=== PATIENT | female | born 1995 | race Caucasian/White ===

== ENCOUNTER → 2020-07-22 13:44 | Outpatient (BNVA) | payer OTHER, SELFPAY | PROVIDERS: Family Provider Nurse Practitioner Family; PCP Nurse Practitioner Family; Visit Provider Obstetrics & Gynecology | DX: Z32.01 Encounter for pregnancy test, result positive (principal) | CPT/HCPCS: 81025 ==

== ENCOUNTER → 2020-08-03 13:20 | Outpatient (BNVA) | payer OTHER, SELFPAY | PROVIDERS: Family Provider Nurse Practitioner Family; PCP Nurse Practitioner Family; Visit Provider Obstetrics & Gynecology | DX: O20.0 Threatened abortion (principal) | CPT/HCPCS: 84702; 86850; 86900 ==

== ENCOUNTER → 2020-08-31 13:51 | Outpatient (BNVA) | payer OTHER, SELFPAY | PROVIDERS: Family Provider Nurse Practitioner Family; PCP Nurse Practitioner Family; Visit Provider Obstetrics & Gynecology | DX: Z34.90 Encounter for supervision of normal pregnancy, unspecified, unspecified trimester (principal) | CPT/HCPCS: 80053; 80307; 84315; 85027; 86592; 86762; 86803; 86850; 86900; 87340 ==

== ENCOUNTER → 2020-09-19 10:32 | Outpatient (BNVA) | payer OTHER, SELFPAY | PROVIDERS: Family Provider Nurse Practitioner Family; PCP Nurse Practitioner Family; Visit Provider Obstetrics & Gynecology | DX: Z12.4 Encounter for screening for malignant neoplasm of cervix (principal) | CPT/HCPCS: 84315; 88175 ==

== ENCOUNTER → 2020-10-11 13:51 | Outpatient (BNVA) | payer OTHER, MEDICAID, SELFPAY | PROVIDERS: Family Provider Nurse Practitioner Family; PCP Nurse Practitioner Family; Visit Provider Obstetrics & Gynecology | DX: Z34.90 Encounter for supervision of normal pregnancy, unspecified, unspecified trimester (principal) | CPT/HCPCS: 81000 ==

== ENCOUNTER → 2021-01-03 12:32 | Outpatient (BNVA) | payer OTHER, MEDICAID, SELFPAY | PROVIDERS: Family Provider Nurse Practitioner Family; PCP Nurse Practitioner Family; Visit Provider Obstetrics & Gynecology | DX: Z34.80 Encounter for supervision of other normal pregnancy, unspecified trimester (principal); Z34.90 Encounter for supervision of normal pregnancy, unspecified, unspecified trimester; Z04.89 Encounter for examination and observation for other specified reasons; F41.9 Anxiety disorder, unspecified; R87.611 Atypical squamous cells cannot exclude high grade squamous intraepithelial lesion on cytologic smear of cervix (ASC-H) | CPT/HCPCS: 82950; 84315; 85027 ==

== ENCOUNTER → 2021-03-01 12:31 | Outpatient (BNVA) | payer OTHER, MEDICAID, SELFPAY | PROVIDERS: Family Provider Nurse Practitioner Family; PCP Nurse Practitioner Family; Visit Provider Obstetrics & Gynecology | DX: Z34.90 Encounter for supervision of normal pregnancy, unspecified, unspecified trimester (principal); Z34.83 Encounter for supervision of other normal pregnancy, third trimester | CPT/HCPCS: 84315; 87081 ==

== ENCOUNTER → 2021-03-14 11:36 | Outpatient (BNVA) | payer OTHER, MEDICAID, SELFPAY | PROVIDERS: Family Provider Nurse Practitioner Family; PCP Nurse Practitioner Family; Visit Provider Obstetrics & Gynecology | DX: Z34.80 Encounter for supervision of other normal pregnancy, unspecified trimester (principal); R87.611 Atypical squamous cells cannot exclude high grade squamous intraepithelial lesion on cytologic smear of cervix (ASC-H) | CPT/HCPCS: 81000 ==

== ENCOUNTER 2021-03-20 03:47 | Inpatient (IN) | payer OTHER, MEDICAID, SELFPAY ==
[2021-03-20] VITALS (69 sets, daily range): BP systolic 80–142; BP diastolic 44–79; PULSE 80–125; RESP 16–20; TEMP 35.9–37.6; BMI 27.6
[2021-03-20] MEDS: lactated ringers 1,000 ML 999 ML IV ×2 (03:50→08:51)
[2021-03-20 03:51] LABS: Basophils % 0.3 %; Eosinophils % 0.3 %; Hematocrit 38.4 % (37.0-47.0); Hemoglobin 12.3 g/dL (11.5-15.3); Lymphocytes # 2.1 10^3/uL (0.8-4.8); Lymphocytes % 17.5 %; Mean Corpuscular Hemoglobin 26.6 pg (28.0-34.0); Mean Corpuscular Volume 82.9 fL (81-99); Mean Platelet Volume 13.2 fL (7.4-10.4); Monocytes # 0.7 10^3/uL (0.2-0.9); Monocytes % 6.3 %; Neutrophils # 8.81 10^3/uL (1.8-7.7); Neutrophils % 75.2 %; Nucleated Red Blood Cells % 0 %; Platelet Count 196 10^3/cmm (130-400); Red Blood Count 4.63 10^6/uL (4.1-5.3); Red Cell Distribution Width 14.6 % (12.1-15.1); White Blood Count 11.7 10^3/uL (4.0-10.0)
[2021-03-20] MEDS: fentaNYL 50 mcg/mL INJ 2mL IVP (03:55)
--- NOTE | 2021-03-20 04:41 | P.ANESASSM_ITS ---
Pre-Anesthetic Assessment Pre-Anesthetic Assessment: Height/Weight: Height 1.57 m Weight 68.492 kg Temp Pulse BP 97.3 F L 97 83/49 03/20/21 03:13 03/20/21 04:37 03/20/21 04:37 Preop Diagnosis: Labor Pain Proposed Procedure: CRISTINO Was Beta Merced taken within 24 hours: N/A Was Clonidine taken within 24 hours: N/A Social: Social History: No alcohol and No tobacco Exam: Pre-Anes Outpt Exam: alert, oriented x 3, clear to auscultation b ilaterally and regular rate & rhythm History/ROS: No significant history except as noted and No significant complaints Pulmonary: Pulmonary: None reported CV/HEM: CV/HEM: None reported : : None reported Hepatic: Hepatic: None reported GI: GI: None reported Metabolic: Metabolic: None reported Musc/skel: Musc/skel: None reported Neuropsych: Neuropsych: None reported Anesthetic Plan: ASA status: 2 Anesthesia: Regional (specify below) Other: CRISTINO Risk of > 500 ml blood loss (7ml/kg in children): No PFSH Anesthesia PFSH: Medical History Anxiety Diagnosed in her late teenage years. Has been on Lexapro in the past. Is not currently on any medication and does not see a therapist. No pertinent past medical history Denies diabetes, asthma, hypertension, seizures, DVT/PE. PMD: none Surgical History No pertinent past surgical history Family History Denies family history of Colon cancer Ovarian cancer Diabetes Clotting disorder Heart disease Hypercholesteremia Breast cancer Bleeding disorder Hypertension Uterine cancer Thyroid disease Stroke Data Anesthesia CBC & Chem 7: 03/20/21 03:43 Other Labs: Laboratory Results - last 48 hr 03/20/21 03:43 WBC 11.7 H RBC 4.63 Hgb 12.3 Hct 38.4 MCV 82.9 MCH 26.6 L MCHC 32.0 RDW 14.6 Plt Count 196 MPV 13.2 H Neut % (Auto) 75.2 Lymph % (Auto) 17.5 [place] % (Auto) 6.3 Eos % (Auto) 0.3 Baso % (Auto) 0.3 Neut # (Auto) 8.81 H Lymph # (Auto) 2.1 [place] # (Auto) 0.7 Eos # (Auto) 0.0 Baso # (Auto) 0.0 Nucleated RBC % (auto) 0 Nucleated RBCs # 0.0 Cardiac Studies: No Data to Display
--- NOTE | 2021-03-20 04:42 | ANES.PROC ---
Anesthesia Procedures Procedure/Date: 03/20/21 Epidural: Time Out Performed: Yes Consents Signed: Procedure Consent Consent: requested by attending/covering physician, from patient, risks and benefits reviewed and patient agrees to proceed Lumbar Level: L2-L3 Epidural position: sitting Epidural procedure: sterile prep of area, 1% lidocaine to numb the area, 18 g needle, neg for paresthesia, test dose given (3cc), 1.5% xylocaine 1:200k epi, 0.2% Ropivacaine bolus ml (5cc and Fentanyl 100mcg), no systemic response, sterile dressing applied, L.U.D. no apparent complications and 0.2% Ropiavacaine @ mls/hr (11cc/hour) Additional Comments: First attempt at L3-L4 suspicious for wet tap. Attempt aborted and cath inserted at L2-L3 as described above
[2021-03-20] MEDS: dextrose 5%-lactated ringers 1,000 ML 125 ML IV (05:21)
--- NOTE | 2021-03-20 08:31 | PM.PN ---
Subjective Subjective: Interval history: Mrs. Lazo 25-year-old female with an estimated gestational age at 38 weeks +6 days in active labor Feeling comfortable feeling the contractions with the epidural Vitals/I&O/Wt Last Vital Signs Temp 98.8 F 03/20/21 07:04 Pulse 100 03/20/21 08:14 Resp 18 03/20/21 05:00 BP 113/58 03/20/21 08:14 03/19/21 03/20/21 03/20/21 22:59 06:59 14:59 Intake Total 1000 / 1000 Balance 1000 / 1000 Weight last 48 hrs Weight 68.492 kg Physical Exam Narrative: EXAM NARRATIVE: GA: Alert and oriented ?3. Lungs: Clear to auscultation bilaterally. Heart: Regular rhythm and rate. Abdomen: Gravid, full the height equals dates, nontender. 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 Extremities: no edema, no cyanosis, no calves pain. heart tracing: Basal rate: 1140 bpm, Variability: Mod, Accelerations: Present, Decelerations: variable, Contraction: q3min. Urinary Catheter Management^: Walker: Cath Placed During This Visit: yes Reason for Continuing Indwelling Catheter: Required Immobilization for Trauma or Surgery or Anesthesia Urinary Catheter Date of Insertion: 03/20/21 Urinary Catheter Time of Insertion: 05:25 Data : 03/20/21 21:45 A&P Assessment and plan (1) Term : Mrs. Lazo 25-year-old female with an estimated gestational age at 38 weeks. Came to labor and delivery in active labor. Having some variable decelerations. heart tracing category 2. Patient was repositioned, intrauterine resuscitation measures taken. She is almost fully dilated with a residual anterior lip. Variability moderate. Good scalp stimulation. Anticipate vaginal delivery Status: Acute Attestations Medical Necessity Statement*: Active labor Coding Level of Care Code Acute Support Director for Chg Fwd Diagnoses Term Z34.90
--- NOTE | 2021-03-20 09:24 | P.PCNOB_ITS ---
Delivery Note: Date of delivery: March 20, 2021 Pre-delivery diagnoses: Term Post-delivery diagnoses: Term delivered Procedure: Spontaneous vaginal delivery Op report anesthesia: General Delivering Physician: Christopher Funes MD Estimated blood loss (mL): 300 Pre-Delivery Course: Ms. Zapata is a 25 year old with LMP of 06/11/2020, CIRO 03/28/2021 based on LMP consistent with 7-week sonogram, placing her at 38 6/7 weeks today who has been receiving care from [facility]. She has been experiencing painful uterine contractions for the past 4 hours. The contractions are occurring at 4 minute intervals with approximately 30 second duration. She continues to feel movement between the contractions. She denies rupture of membranes, but referred spotting. CC: Onset of labor at term. HPI: Received appropriate care. Daily vitamins since two months prior to conception. labs have all been normal, including negative for HIV. She was found to negative for Group B Strep from screening at 36 weeks. She has gained approximately 34 lbs throughout the . She denies a history of HTN during . Glucose tolerance screening for gestational diabetes was negative. Delivery: The patient was noted to be complete and pushing, so was placed in the dorsal lithotomy position, prepped and draped in the usual sterile fashion for a vaginal delivery. Pt. Noted to have epidural anesthesia. At 0918 the patient delivered a male at term weighing 3060 g with scores of 9 and 9 at one and five minutes, respectively. The vertex was delivered spontaneously over an intact perineum. The patient was asked to push and the head delivered spontaneously in the KIM position, over an intact perineum. A nuchal cord was checked and 2 loops noted, and delivered through around head as necessary. The anterior shoulder delivered easily and the posterior shoulder followed. The remainder of the was easily delivered and the oropharynx and nasopharynx was bulb suctioned. The infant was noted to have spontaneous cry and spontaneous movement of all four extremities. The cord was clamped x 2 and cut and noted to have 2 arteries and one vein. The infant was passed to the mother's abdomen where nursing personnel were in attendance. Cord blood sample was then obtained. The placenta delivered intact spontaneously and the uterus was explored. 20 units of Pitocin was placed in the IV bag to firm the uterus. Examination of the cervix and vaginal vault did not reveal any lacerations. A vaginal pack was then placed. Examination of the perineum showed no lacerations. The vaginal pack was then removed. The patient tolerated this procedure well, and recovered in L&D with her in their LDR room. All sponge and needle counts were correct. Post-Delivery Status: Good and stable Coding Level of Care Code Acute Chief Strategy Officer for Kostas Sheets
[2021-03-20] MEDS: oxytocin 30 UNIT/500 ML BAG 600 UNIT IV (09:32)
[2021-03-20] MEDS: lidocaine 2% INJ 20 mL INJECTION (09:32)
--- NOTE | 2021-03-20 10:44 | PC.NURSE ---
1035- Called in to patient room stating that she felt a gush of something . This nurse note a small amount of blood on the santo pad. Fundal massage was performed and there was no deviation from the bladder. Santo pad changed and ice pack repositioned. Patient stated that she was feeling dizzy. Patient was drinking orange juice and she was offered food. She asked if her was able to pick her up food at [employer]. She was instructed not to get out of bed without assistance from the nursing staff. Patient verbalized understanding. No further needs noted at this time.
--- NOTE | 2021-03-20 11:00 | PC.NURSE ---
Hat Brusher Machine in to do 1100 fundal massage. Noted that there is liquid running down the side of the bed and in to a large puddle on the floor. Patient states something feels wet but does not feel like she has urinated. Patient assisted to the bathroom and voids in toilet. Complete linen change performed and floor cleaned. Patient sitting up in bed eating afterwards.
[2021-03-20] MEDS: benzocaine-menthol 78 gm Canister 1 SPRAY TOPICAL (15:07)
[2021-03-20] MEDS: ibuprofen 800 mg tablet PO ×2 (15:07→21:06)
[2021-03-20] MEDS: docusate sodium 100 mg Capsule PO (17:50)
[2021-03-20 21:55] LABS: Hematocrit 33.2 % (37.0-47.0); Hemoglobin 10.6 g/dL (11.5-15.3); Mean Corpuscular HGB Conc 31.9 g/dL (30.0-36.0); Mean Corpuscular Hemoglobin 26.6 pg (28.0-34.0); Mean Corpuscular Volume 83.4 fL (81-99); Mean Platelet Volume 12.4 fL (7.4-10.4); Platelet Count 158 10^3/cmm (130-400); Red Blood Count 3.98 10^6/uL (4.1-5.3); Red Cell Distribution Width 14.3 % (12.1-15.1); White Blood Count 12.7 10^3/uL (4.0-10.0)
[2021-03-21 03:58] VITALS: TEMP 35.9
[2021-03-21 03:59] VITALS: BP 76/43; PULSE 85
[2021-03-21] MEDS: acetaminophen 325 mg Tablet 650 MG PO (07:09)
[2021-03-21] MEDS: ibuprofen 800 mg tablet PO (09:41)
[2021-03-21] MEDS: docusate sodium 100 mg Capsule PO (09:41)
[2021-03-21] MEDS: prenatal vitamin Capsule 1 CAP PO (09:41)
[2021-03-21 09:43] VITALS: BP 98/55; PULSE 92
[2021-03-21 09:44] VITALS: TEMP 36.4
--- NOTE | 2021-03-21 12:03 | PM.OBGYDC ---
Discharge Providers SERVOMECHANISM ASSEMBLER Date of Admission: 03/20/21 03:47 Date of Discharge: 03/21/21 Attending Provider at Admission: Christopher Funes MD Attending Provider at Discharge: Christopher Funes MD Primary Care Provider: Mauricio Cardona Diagnoses at Discharge Discharge Diagnosis (1) Term delivered: Status: Acute Reason for Visit Reason for Visit: CONTRACTIONS Hospital Course Hospital Course Ms. Zapata is a 25 year old with LMP of 06/11/2020, CIRO 03/28/2021 based on LMP consistent with 7-week sonogram, placing her at 38 6/7 weeks today who has been receiving care [place] [facility]. She has been experiencing painful uterine contractions for the past 4 hours. The contractions are occurring at 4 minute intervals with approximately 30 second duration. She continues to feel movement between the contractions. She denies rupture of membranes, but referred spotting. Admitted to labor and delivery with cervix at 5 cm dilation, 75% effacement at 0 station in active labor. She progressed to have a spontaneous vaginal delivery of male infant with a weight at 3060 g Apgars 9/9. observation has been uneventful. Tolerating diet well. Ambulating without difficulty. Information Peripartum Data: Delivery Method: Vaginal Physical Exam Narrative: EXAM NARRATIVE: GA; alert and oriented x 3 HEENT: normal Breasts: engorged Nipples - skin intact Lungs; clear to auscultation Heart: regular rhythm, no murmurs. Abd: Appropriately tender. BS+. Uterine fundus below umbilicus. No Fundal Tenderness. Perineum: normal lochia. Extremities: no edema, no cyanosis, no tenderness. Urinary Catheter Management^: Walker: Cath Placed During This Visit: yes, but has since been removed by the nurse Reason for Continuing Indwelling Catheter: Required Immobilization for Trauma or Surgery or Anesthesia Urinary Catheter Date of Insertion: 03/20/21 Urinary Catheter Time of Insertion: : Date Urinary Catheter Removed: 03/20/21 Time Urinary Catheter Discontinued: 08:21 Discharge Data Data Completed and Pending: Labs from last 24 hours 03/20/21 21:45 WBC 12.7 H RBC 3.98 L Hgb 10.6 L Hct 33.2 L MCV 83.4 MCH 26.6 L MCHC 31.9 RDW 14.3 Plt Count 158 MPV 12.4 H Vitals: Last Vital Signs Temp 97.5 F L 03/21/21 09:44 Pulse 92 03/21/21 09:43 Resp 16 03/20/21 16:20 BP 98/55 03/21/21 09:43 Discharge Plan Discharge Patient Disposition: Home Condition: Stable Prescriptions: New ibuprofen 800 mg tablet 800 mg PO TID PRN (Reason: pain) Qty: 60 RF: 0 acetaminophen 325 mg capsule 325 mg PO Q4H PRN (Reason: fever or pain) Qty: 60 RF: 0 Continued prenat.vits,reese,lcd-kzms-tapnh Tablet 1 tab PO DAILY RF: 0 docusate sodium [Colace] 100 mg capsule 100 mg PO DAILY PRN (Reason: Heartburn) RF: 0 famotidine [Pepcid] 20 mg tablet 20 mg PO DAILY RF: 0 calcium carbonate 500 mg calcium (1,250 mg) tablet,chewable 500 mg PO DAILY PRN (Reason: Heartburn) RF: 0 Discharge Orders: Discharge Order (Routine); Ordered 03/21/21 Ordered By: Christopher Funes Referrals: Christopher Funes MD [Physician] - 05/09/21 10:00 am (Your 6 week check has been scheduled for 05/09/2021 at 10:00 am.) Discharge Diet: Usual diet Discharge Activity: Increase activity as tolerated Patient Instructions: Vitamins (By mouth), Pre-eclampsia and Eclampsia (DC), Bleeding (DC), OB Discharge Report, OB Food/Drug Interaction Guide, Opioid Safety, OB Proud Parent Packet, OB Vaginal Deliveries - [facility] Activity Restrictions/Additional Instructions: 1. Please call [facility] on next working day to make your post appointment in 6 weeks. 2. Please stay home until you come back to the clinic on first post-operative check up. 3. Please follow instructions on your medications CAREFULLY. 4. If you have abdominal incision, do not cover it unless dressing is necessary because of drainage. OK to shower, but avoid bath. Leave steri-strips until they fall off. If they are still on one week after surgery, you may remove them. 5. If you had vaginal surgery or vaginal repair, Dr. Funes may instruct you to take SITZ bath. 6. Yellow, blood tinged odorous vaginal discharge is usually normal after hysterectomy or vaginal surgeries. 7. No sexual intercourse, tampons, or douches until you are completely released from the post-operative care. 8. Avoid constipation by eating right and maybe using some Metamucil or Milk of Magnesia. 9. All prescription refills are given during the working hours. Please do no wait till it runs out. Call the clinic at [phone] before your medication runs out. The clinic will get in touch with your doctor to prescribe medications if necessary. 10. Please remain within 40 mile radius from our hospital because emergencies do happen now and then during the post-operative period. 11. If you have stairs at home, take one step at a time slowly and minimize the number of trips. It helps to stay in one floor for the next few days. No lifting except what you can lift by one hand until you are released from the post-operative care. 12. Driving is discouraged until you are well healed. It may be 3-4 weeks before you feel strong enough to drive. You should be able to turn and look through the rear window without pain and you should be able to push the brake pedal very hard without pain before you drive. No fast rules, but SAFETY should be your primary concern. DO NOT drive if you are on sedating medications such as narcotics. 13. Call the clinic (during working hours) to make urgent appointment or go to the Emergency room, if any of the following occurs: i. Vaginal bleeding becomes heavy, more than a period. ii. Incision becomes red and sore, or drains pus. iii. Your temperature is over 100.4 or you have chill. iv. IV site becomes red and swollen (a little ``knot?? is usually OK) v. Persistent nausea and vomiting vi. Persistent constipation or diarrhea vii. Rash or allergic reaction to medications. Discharge Attestations SERVOMECHANISM ASSEMBLER Time Spent in Discharge Care*: greater than 30 min Coding Level of Care Code Acute Java [id number] Technical Lead for Chg Fwd Diagnoses Term delivered O80
[2021-03-21 12:19] VITALS: BP 105/61; PULSE 90; TEMP 36.2
[2021-03-21 12:59] VITALS: BP 105/61; PULSE 90; RESP 16; TEMP 36.2; O2SAT 99
== END 2021-03-21 12:55 | disposition home or self-care (01) | DRG 807 ==
LOC: OPOB 03:47 → OBGYN 03:47
PROVIDERS: Admitting Provider Obstetrics & Gynecology; PCP Nurse Practitioner Family; Visit Provider Obstetrics & Gynecology
DX: O76 Abnormality in fetal heart rate and rhythm complicating labor and delivery (principal); Z37.0 Single live birth; O99.344 Other mental disorders complicating childbirth; F41.9 Anxiety disorder, unspecified; O69.2XX0 Labor and delivery complicated by other cord entanglement, with compression, not applicable or unspecified; Z3A.38 38 weeks gestation of pregnancy; O75.89 Other specified complications of labor and delivery; R87.611 Atypical squamous cells cannot exclude high grade squamous intraepithelial lesion on cytologic smear of cervix (ASC-H)
CPT/HCPCS: 36415; 51702; 59025; 59409; 85025; 85027; 96374; 96375; 98960; 99211; J2795; J3010

== ENCOUNTER → 2021-05-16 14:53 | Outpatient (BNVA) | payer OTHER, MEDICAID, SELFPAY | PROVIDERS: PCP Nurse Practitioner Family; Visit Provider Obstetrics & Gynecology | DX: R87.611 Atypical squamous cells cannot exclude high grade squamous intraepithelial lesion on cytologic smear of cervix (ASC-H) (principal) | CPT/HCPCS: 81025; 88175; 88305 ==

== ENCOUNTER → 2022-01-01 14:30 | Outpatient (BNVA) | payer OTHER, MEDICAID, SELFPAY | PROVIDERS: PCP Nurse Practitioner Family; Visit Provider Obstetrics & Gynecology | DX: R87.612 Low grade squamous intraepithelial lesion on cytologic smear of cervix (LGSIL) (principal) | CPT/HCPCS: 88175 ==

== ENCOUNTER → 2022-02-06 15:10 | Outpatient (BNVA) | payer OTHER, MEDICAID, SELFPAY | PROVIDERS: PCP Nurse Practitioner Family; Visit Provider Obstetrics & Gynecology | DX: R87.611 Atypical squamous cells cannot exclude high grade squamous intraepithelial lesion on cytologic smear of cervix (ASC-H) (principal) | CPT/HCPCS: 81025; 88305; 88342 ==

== ENCOUNTER → 2023-01-21 15:30 | Outpatient (BNVA) | payer OTHER, MEDICAID, SELFPAY | PROVIDERS: PCP Nurse Practitioner Family; Visit Provider Nurse Practitioner Women's Health | DX: Z01.419 Encounter for gynecological examination (general) (routine) without abnormal findings (principal) | CPT/HCPCS: 88175 ==

== ENCOUNTER → 2023-02-19 13:02 | Outpatient (BNVA) | payer OTHER, MEDICAID, SELFPAY | PROVIDERS: PCP Nurse Practitioner Family; Visit Provider Obstetrics & Gynecology | DX: Z01.818 Encounter for other preprocedural examination (principal); R87.619 Unspecified abnormal cytological findings in specimens from cervix uteri; Z12.4 Encounter for screening for malignant neoplasm of cervix | CPT/HCPCS: 81025; 87624; 88305 ==

== ENCOUNTER 2023-04-11 10:18 | Day surgery (SDC) | payer OTHER, MEDICAID, SELFPAY ==
[2023-04-10 09:24] VITALS: BMI 22.6
[2023-04-11] VITALS (10 sets, daily range): BP systolic 98–125; BP diastolic 60–87; PULSE 78–98; RESP 12–18; TEMP 36.1–36.7; O2SAT 95–100
[2023-04-11] MEDS: sodium chloride 0.9% 1,000 ML 30 ML IV (10:45)
[2023-04-11 11:14] LABS: OR HCG Qualitative Urine Negative (Negative)
--- NOTE | 2023-04-11 11:55 | W.PM.OPSUD ---
Surgery/Procedure H&P Update DATE OF PROCEDURE: April 11, 2023 DATE H&P PERFORMED: 04/11/23 H&P UPDATE INFORMATION: I have reviewed H&P completed within last 30 days, I have examined patient prior to procedure and No changes to prior documentation PREOP DIAGNOSIS: severe cervical dysplasia PLANNED PROCEDURE: Operation Date: 04/11/23 12:00 Proposed Procedures p LEEP 48068,R87.619(Not Applicable) - Zana Palm MD
--- NOTE | 2023-04-11 11:55 | W.PM.OPSFHP ---
Same Day Surgery H&P Indication for Procedure/HPI DATE OF PROCEDURE: April 11, 2023 CHIEF COMPLAINT/INDICATIONFOR SURGICAL PROCEDURE: severe cervical dysplasia PREOP DIAGNOSIS: severe cervical dysplasia PLANNED PROCEDURE: Operation Date: 04/11/23 12:00 Proposed Procedures p LEEP 51449,R87.619(Not Applicable) - Zana Palm MD 27 y.o. with colposcopically-directed cervical biopsy showing severe cervical dysplasia, now scheduled for electrosurgical loop excision of the cervix. Medications/Allergies* Allergies/Adverse Reactions Allergy/AdvReac Type Severity Reaction Status Date / Time No Known Allergies Allergy Verified 04/11/23 10:38 Pertinent History/Comorbid Conditions* Medical History (Updated 02/24/23 @ 00:42 by Zana Palm MD) Anxiety and depression Diagnosed in her teenage years--more anxiety. Has been on Lexapro in the past. Was started on Zoloft in 2020 with good control of symptoms. Therapy encouraged. -She does not have a psychiatrist No pertinent past medical history Denies diabetes, asthma, hypertension, seizures, DVT/PE. PMD: none Surgical History (Updated 08/17/20 @ 14:15 by Corrine Daily APN, MARIANA) No pertinent past surgical history Family History (Updated 08/17/20 @ 13:41 by Merna Flores) Denies family history of Colon cancer Ovarian cancer Diabetes Clotting disorder Heart disease Hypercholesteremia Breast cancer Bleeding disorder Hypertension Uterine cancer Thyroid disease Stroke Pertinent Exam Findings alert, oriented x 3, clear to auscultation bilaterally and regular rate & rhythm Recommendations Surgery/Procedure today Coding Level of Care Code Acute Code for Chg Fwd Diagnoses Time Spent (min) 15
--- NOTE | 2023-04-11 12:27 | ANES.PREANE2 ---
Pre-Anesthetic Assessment Height/Weight: Height 1.6 m Weight 58.06 kg Temp Pulse Resp BP Pulse Ox O2 Del Method 98.1 F 78 18 124/60 97 Room Air 04/11/23 10:40 04/11/23 10:40 04/11/23 10:40 04/11/23 10:40 04/11/23 10:40 04/11/23 10:41 Preop Diagnosis: severe cervical dysplasia Operation Date: 04/11/23 12:00 Proposed Procedures p LEEP 27171,R87.619(Not Applicable) - Zana Palm MD Familial anesthetic complications: none Was Beta Merced taken within 24 hours: N/A Was Clonidine taken within 24 hours: N/A Last intake: Intake Last Liquid Date 04/10/23 Last Liquid Time 23:30 Last Solid Date 04/10/23 Last Solid Time 23:30 Social No alcohol and No tobacco Exam alert, oriented x 3, clear to auscultation bilaterally and regular rate & rhythm Airway Submandibular: within normal limits Cervical ROM: within normal limits Mallampati: Class II Dentition: full Neuropsych Anxiety and Depression Anesthetic Plan ASA status: 2 Anesthesia: General Medications/Allergies Home Medications Medication Instructions Recorded Confirmed Last Taken Type valacyclovir 1 gram tablet 2,000 mg PO BID 1 day #4 tabs 01/21/23 04/10/23 03/13/23 Rx valacyclovir 500 mg tablet 500 mg PO DAILY 1 month #30 tabs 01/21/23 04/10/23 04/10/23 Rx norethindrone 1 mg-ethinyl 1 tab PO DAILY #84 tabs 02/19/23 04/10/23 04/09/23 Rx estradiol 20 mcg (21)-iron 75 mg (7) tablet (11/16 (28)) sertraline 100 mg tablet (Zoloft) 100 mg PO DAILY #90 tabs 02/27/23 04/11/23 04/10/23 Rx Allergies Allergy/AdvReac Type Severity Reaction Status Date / Time No Known Allergies Allergy Verified 04/11/23 10:38 PENDING SALE TO [facility] Anesthesia Medical History Anxiety and depression Diagnosed in her teenage years--more anxiety. Has been on Lexapro in the past. Was started on Zoloft in 2020 with good control of symptoms. Therapy encouraged. -She does not have a psychiatrist No pertinent past medical history Denies diabetes, asthma, hypertension, seizures, DVT/PE. PMD: none Surgical History No pertinent past surgical history Family History Denies family history of Colon cancer Ovarian cancer Diabetes Clotting disorder Heart disease Hypercholesteremia Breast cancer Bleeding disorder Hypertension Uterine cancer Thyroid disease Stroke Female Reproductive History Date of last menstrual period: 01/26/23 Data Anesthesia Cardiac Studies: No Data to Display
[2023-04-11] MEDS: vasopressin 20 unit/mL INJ INJECTION (12:53)
[2023-04-11] MEDS: silver nitrate applicator 5 EACH TOPICAL (13:09)
[2023-04-11] MEDS: meperidine 50 mg/mL INJ 12.5 MG IVP (13:46)
[2023-04-11] MEDS: ibuprofen 800 mg tablet PO (14:51)
--- NOTE | 2023-04-11 15:43 | ANE.PACU2 ---
Inpatient post-anesthesia follow up: Airway intact: Yes Vital signs: Temperature 97.3 F Pulse Rate 87 Respiratory Rate 16 Blood Pressure 106/72 Pulse Oximetry 99 Oxygen Delivery Me thod Room Air Oxygen Flow Rate 6 Fraction of Inspir ed Oxygen Hydration adequate: Yes Nausea and vomiting: No Pain level: 3 Mental status: Baseline
--- NOTE | 2023-04-11 19:09 | PM.OP ---
Operative Report Date of procedure: April 11, 2023 Pre-op diagnosis: Preop Diagnosis severe cervical dysplasia Post-op diagnosis: same Procedure done: Electrosurgical loop excision of cervix Specimens removed/disposition: cervical excision Surgeon: Zana Palm MD Anesthesia: MAC Estimated blood loss (mL): 5 Complications: none Condition: stable Disposition: PACU Brief History: 27 y.o. with severe cervical dysplasia on colposcopically-directed cervical biopsy Procedure: Informed consent signed The patient was taken to the operating room and placed supine on the table. MAC anesthesia was induced. The patient was placed in dorsolithotomy position. The patient was prepped and draped in the usual sterile fashion. A bivalve speculum was placed in the vagina. The anterior lip of the cervix was grasped with a single toothed tenaculum. The cervix was then infiltrated at the cervicovaginal junction with 20 U of vasopressin to decrease bleeding. Electrosurgical loop excision of the cervix was done to a depth of approximately 5 mm. Bleeding from the posterior cervix was controlled with silver nitrate and then with one stitch of 2-O chromic. Excellent hemostasis was noted. All instruments were then removed. The patient was placed supine, awakened, and taken to the recovery room. Postoperative condition: stable EBL: less than 5 cc Complications: none Sponge and instrument counts were correct x two
== END 2023-04-11 15:10 | disposition home or self-care (01) ==
PROVIDERS: Anesthesiology; PCP Nurse Practitioner Family; Visit Provider Obstetrics & Gynecology
PROC: 0UBC7ZZ Excision of Cervix, Via Natural or Artificial Opening (ICD-10-PCS; CPT 57522; principal; 2023-04-11 12:00)
DX: N87.1 Moderate cervical dysplasia (principal)
CPT/HCPCS: 57461; 81025; 84703; 88307; J1100; J1885; J2175; J2405; J2704; J3010; J3490; J7030

== ENCOUNTER → 2023-06-11 11:00 | Outpatient (BNVA) | payer OTHER, MEDICAID, SELFPAY | PROVIDERS: PCP Nurse Practitioner Family; Visit Provider Obstetrics & Gynecology | DX: Z12.4 Encounter for screening for malignant neoplasm of cervix (principal) | CPT/HCPCS: 87624 ==

== ENCOUNTER → 2023-09-09 14:30 | Outpatient (BNVA) | payer OTHER, MEDICAID, SELFPAY | PROVIDERS: PCP Nurse Practitioner Family; Visit Provider Obstetrics & Gynecology | DX: Z12.4 Encounter for screening for malignant neoplasm of cervix (principal) | CPT/HCPCS: 88175 ==

== ENCOUNTER → 2023-12-30 15:10 | Outpatient (BNVA) | payer MEDICAID, SELFPAY | PROVIDERS: PCP Nurse Practitioner Family; Visit Provider Obstetrics & Gynecology | DX: Z01.419 Encounter for gynecological examination (general) (routine) without abnormal findings (principal) | CPT/HCPCS: 87624 ==

== ENCOUNTER 2024-02-27 10:44 | Day surgery (SDC) | payer OTHER, MEDICAID, SELFPAY ==
[2024-02-27] VITALS (15 sets, daily range): BP systolic 96–141; BP diastolic 66–104; PULSE 77–91; RESP 14–18; TEMP 36.3–36.8; O2SAT 91–98; BMI 24.5
--- NOTE | 2024-02-27 01:37 | P.HP_ITS ---
Same Day Surgery H&P Indication for Procedure/HPI DATE OF PROCEDURE: February 27, 2024 CHIEF COMPLAINT/INDICATIONFOR SURGICAL PROCEDURE: high-grade cervical dysplasia PREOP DIAGNOSIS: high-grade cervical dysplasia PLANNED PROCEDURE: Operation Date: 02/27/24 12:20 Proposed Procedures p Cervical Conization 87342, N87.1(Not Applicable) - Zana Palm MD 28 y.o. h/o LEEP cervical excision April 11, 2023 for colposcopically cervical bx c/w GAETANO III pathology of LEEP cervical excision - GAETANO II with endocervical glandular invo lvement cauterized ectocervical margin focally positive now with persistent HGSIL Paps scheduled for conization of cervix Medications/Allergies* Home Medications Medication Instructions Recorded Confirmed Type sertraline 100 mg tablet 100 mg PO DAILY 02/26/24 02/26/24 History Allergies/Adverse Reactions Allergy/AdvReac Type Severity Reaction Status Date / Time No Known Allergies Allergy Verified 12/30/23 14:13 Pertinent History/Comorbid Conditions* Medical History (Updated 09/17/23 @ 21:08 by Zana Palm MD) Anxiety and depression Diagnosed in her teenage years--more anxiety. Has been on Lexapro in the past. Was started on Zoloft in 2020 with good control of symptoms. Therapy encouraged. -She does not have a psychiatrist No pertinent past medical history Denies diabetes, asthma, hypertension, seizures, DVT/PE. PMD: none Surgical History (Updated 08/17/20 @ 14:15 by Corrine Daily APN, MARIANA) No pertinent past surgical history Family History (Updated 08/17/20 @ 13:41 by Merna Flores) Denies family history of Colon cancer Ovarian cancer Diabetes Clotting disorder Heart disease Hypercholesteremia Breast cancer Bleeding disorder Hypertension Uterine cancer Thyroid disease Stroke Pertinent Exam Findings alert, oriented x 3, clear to auscultation bilaterally and regular rate & rhythm Recommendations Surgery/Procedure today Coding Level of Care Code Acute Code for Chg Fwd Time Spent (min) 30
[2024-02-27] MEDS: sodium chloride 0.9% 1,000 ML 30 ML IV (11:41)
--- NOTE | 2024-02-27 12:47 | W.PM.OPSUD ---
Surgery/Procedure H&P Update DATE OF PROCEDURE: February 27, 2024 DATE H&P PERFORMED: 02/27/24 H&P UPDATE INFORMATION: I have reviewed H&P completed within last 30 days, I have examined patient prior to procedure and No changes to prior documentation PREOP DIAGNOSIS: severe cervical dysplasia PLANNED PROCEDURE: Operation Date: 02/27/24 12:20 Proposed Procedures p Cervical Conization 57160, N87.1(Not Applicable) - Zana Palm MD
--- NOTE | 2024-02-27 13:15 | PM.OP ---
Operative Report Date of procedure: February 27, 2024 Pre-op diagnosis: severe cervical dysplasia Post-op diagnosis: same Procedure done: cold-knife conization of cervix Implants: none Specimens removed/disposition: cone of cervix Surgeon: Zana Palm MD Anesthesia: MAC Estimated blood loss (mL): 10 Complications: none Condition: stable Disposition: PACU Brief History: 28 y.o. h/o LEEP cervical excision April 11, 2023 for colposcopically cervical bx c/w GAETANO III pathology of LEEP cervical excision - GAETANO II with endocervical glandular involvement cauterized ectocervical margin focally positive now with persistent HGSIL Paps Procedure: Informed consent signed The patient was taken to the operating room and placed supine on the table. MAC anesthesia was induced. The patient was placed in dorsolithotomy position. The patient was prepped and draped in the usual sterile fashion. A bivalve speculum was placed in the vagina. The anterior lip of the cervix was grasped with a single toothed tenaculum. The cervix was then infiltrated at the cervicovaginal junction with 20 U of vasopressin in 10 cc of sterile normal saline to decrease bleeding. The cold-knife conization was then performed with a scalpel, to a depth of approximately 1 cm. Monsel?s solution was applied. Two O-Chromic stitches were placed to control bleeding from the edge of the excision. Excellent hemostasis was then noted. All instruments were then removed. The patient was placed supine, awakened, and taken to the recovery room. Postoperative condition: stable EBL: 10 cc Complications: none Sponge and instrument counts were correct x two
[2024-02-27] MEDS: vasopressin 20 unit/mL INJ INJECTION (13:41)
--- NOTE | 2024-02-27 13:51 | PC.NURSE ---
Dr. Palm used monsels per patient's vagina
[2024-02-27] MEDS: fentaNYL 50 mcg/mL INJ 2mL IVP ×2 (14:31→14:41)
--- NOTE | 2024-02-27 15:00 | ANE.PACU2 ---
Inpatient post-anesthesia follow up: Vital signs: Temperature 97.8 F Pulse Rate 89 Respiratory Rate 17 Blood Pressure 117/79 Pulse Oximetry 97 Oxygen Delivery Me thod Nasal Cannula Oxygen Flow Rate 2 Fraction of Inspir ed Oxygen Hydration adequate: Yes Nausea and vomiting: No Pain level: 5 Mental status: Baseline
== END 2024-02-27 16:20 | disposition home or self-care (01) ==
PROVIDERS: PCP Nurse Practitioner Family; Visit Provider Obstetrics & Gynecology
PROC: 0UBC7ZZ Excision of Cervix, Via Natural or Artificial Opening (ICD-10-PCS; CPT 57520; principal; 2024-02-27 12:10)
DX: N87.9 Dysplasia of cervix uteri, unspecified (principal)
CPT/HCPCS: 57520; 88307; J1100; J1885; J2405; J2704; J3010; J3490; J7030